=== PATIENT | female | born 1975 | race Caucasian/White ===

== ENCOUNTER 2022-08-31 20:57 | Emergency (ER) | payer BC ==
[~2022-08-31] VITALS: Ht 147.3 cm; Wt 59.4 kg
[2022-08-31 21:04] VITALS: BP_SYST 130
--- NOTE | 2022-08-31 21:05 | NUR ---
Patient triaged and placed in waiting room. VSS and patient appears in no acute distress at this time. Accompanied by , awaiting available bed, and MD notified of need for MSE.
[2022-08-31 21:36] LABS: BASOPHILS # (AUTO) 0.1 K/uL (0.0-0.2); BASOPHILS % (AUTO) 0.7 % (0.0-2.0); EOSINOPHILS # (AUTO) 0.2 K/uL (0.0-0.4); EOSINOPHILS % (AUTO) 1.4 % (0.0-4.0); HEMATOCRIT 45.4 % (36-48); HEMOGLOBIN 15.2 g/dL (12.0-16.0); LYMPHOCYTES % (AUTO) 16.2 % (20.5-51.5); MEAN CORPUSCULAR HEMOGLOBIN 30 pg (27-31); MEAN CORPUSCULAR HGB CONC 34 % (32-36); MEAN CORPUSCULAR VOLUME 88 fL (79.0-98.0); MONOCYTES % (AUTO) 8.5 % (1.7-9.3); NEUTROPHILS # (AUTO) 8.8 K/uL (1.8-7.7); NEUTROPHILS % (AUTO) 73.2 % (40.0-70.0); PLATELET COUNT (AUTO) 302 K/uL (130-430); RED BLOOD CELL COUNT(AUTO) 5.14 MIL/uL (4.2-6.2); RED CELL DISTRIBUTION WIDTH 13.1 % (9.0-15.0); WHITE BLOOD COUNT (AUTO) 12.1 K/uL (4.8-10.8)
--- NOTE | 2022-08-31 21:49 | NUR ---
Patient to ER bed 08 to gown for evaluation. Side rails up. Report given to SHANNAN FERNÁNDEZ.
--- NOTE | 2022-08-31 21:59 | NUR ---
Urine specimen collected and dropped off at the lab.
[2022-08-31 22:00] LABS: ALBUMIN 3.7 g/dL (3.4-4.8); CALCIUM 9.3 mg/dL (8.4-11.0); CREATININE 0.6 mg/dL (0.55-1.30)
--- NOTE | 2022-08-31 22:04 | NUR ---
Dr. Santamaria at bedside examining the patient.
[2022-08-31] MEDS ORDERED: KETOROLAC TROMETHAMINE 60 MG/2 ML VIAL IM ONE (22:15)
[2022-08-31 22:18] LABS: TOTAL BILIRUBIN 0.5 mg/dL (0.0-1.0)
[2022-08-31 22:22] LABS: BILIRUBIN,URINE NEGATIVE (NEGATIVE); CLARITY/URINE CLEAR (CLEAR); COLOR,URINE YELLOW (YELLOW); GLUCOSE,URINE NEGATIVE (NEGATIVE); KETONES,URINE NEGATIVE (NEGATIVE); NITRITE, URINE NEGATIVE (NEGATIVE); PROTEIN URINE NEGATIVE (NEGATIVE); UROBILINOGEN,URINE 0.2 (0.2-1.0)
[2022-08-31 22:30] LABS: BLOOD, URINE TRACE (NEGATIVE)
[2022-08-31 22:31] LABS: BACTERIA,URINE FEW /HPF (None Seen); LEUKOCYTE ESTERASE ,URINE TRACE (NEGATIVE); MUCUS,URINE None Seen /LPF (None Seen); RBC,URINE 0-3 /HPF (0-3)
[2022-08-31] MEDS ORDERED: TRAM50TA2 PO (23:03)
[2022-08-31 23:11] VITALS: BP_SYST 122
--- NOTE | 2022-08-31 23:13 | NUR ---
Patient is alert and oriented x4, respirations even and unlabored, speaking in full sentences, and ambulating with a steady gait. Denied any acute distress at this time. Okay for discharge per Dr. Santamaria. Printed discharge instructions and prescription given to the patient. ED and 911 precautions given. Patient verbalized understanding.
== END 2022-08-31 23:11 | disposition home or self-care (01) ==
LOC: SED 20:57
DX: K80.50 Calculus of bile duct without cholangitis or cholecystitis without obstruction (principal); R10.13 Epigastric pain; R11.0 Nausea; Z79.899 Other long term (current) drug therapy
CPT/HCPCS: 99285; 76705; 80053; 81000; 83690; 85025; 36415; 96372; J1885

== ENCOUNTER 2022-12-31 06:27 | Day surgery (SDC) | payer BC ==
[~2022-12-31] VITALS: Ht 147.3 cm; Wt 58.1 kg
[~2022-12-31 06:27] MED LIST: TRAM50TA2 PO
[2022-12-31 06:59] LABS: HCG,QUAL RESULT NEGATIVE (NEGATIVE)
[2022-12-31] MEDS ORDERED: CEFAZOLIN SOD 2 GM in D5W 50 ML IV ONE (07:00)
[2022-12-31] MEDS ORDERED: PROPOFOL 200MG/ 20ML VIAL (DIPRIVAN) IV ONE (07:20)
[2022-12-31] MEDS ORDERED: MIDAZOLAM HCL 5 MG/5 ML VIAL ONE (07:20)
[2022-12-31] MEDS ORDERED: NS 1000 ML IV.SOLN IV ONE (07:20)
[2022-12-31] MEDS ORDERED: KETOROLAC TROMETHAMINE 30 MG VIAL ONE (07:20)
[2022-12-31] MEDS ORDERED: NEOSTIGMINE METHYLSULFATE 1 MG/ML, 10 ML VIAL ONE (07:20)
[2022-12-31] MEDS ORDERED: fentaNYL CITRATE 250 MCG/5 ML AMP ONE (07:20)
[2022-12-31] MEDS ORDERED: NS IRRIG SOLN 1000 ML IR ONE (07:20)
[2022-12-31] MEDS ORDERED: ROCURONIUM BROMIDE 10 MG/ML (ZEMURON) ONE (07:20)
[2022-12-31] MEDS ORDERED: ISOFLURANE 15 MIN GAS INH ONE (07:20)
[2022-12-31] MEDS ORDERED: LIDOCAINE 2%, 20 ML MDV ONE (07:20)
[2022-12-31] MEDS ORDERED: DEXAMETHASONE SOD PHOSPHATE 4 MG/ML VIAL ONE (07:20)
[2022-12-31] MEDS ORDERED: CEFAZOLIN 1 GM IVPB PREMIX 50 ML IV ONE (07:20)
[2022-12-31] MEDS ORDERED: ONDANSETRON HCL 4 MG/2 ML VIAL ONE (07:20)
[2022-12-31] MEDS ORDERED: GLYCOPYRROLATE 0.2 MG/ML VIAL ONE (07:20)
[2022-12-31] MEDS ORDERED: BUPIVACAINE /PF 0.25% 30 ML VIAL INJ ONE (07:20)
[2022-12-31] MEDS ORDERED: LABETALOL 100 MG/ 20ML VIAL IVP PRN (08:15)
[2022-12-31] MEDS ORDERED: MEPERIDINE HCL/PF 25 MG/ML DISP.SYRIN IVP PRN (08:15)
[2022-12-31] MEDS ORDERED: LR 1,000 ML IV SCH (08:15)
[2022-12-31] MEDS ORDERED: hydrALAZINE HCL 20 MG/ML VIAL IVP PRN (08:15)
[2022-12-31] MEDS ORDERED: HYDROmorphone 1 MG/ML INJ. CARTRIDGE IVP PRN ×2 (08:15)
[2022-12-31] MEDS ORDERED: METOCLOPRAMIDE HCL 10 MG/2 ML VIAL IVP PRN (08:15)
[2022-12-31] MEDS ORDERED: ACETAMINOPHEN I.V. 1000 MG 100 ML IV ONE (08:24)
[2022-12-31] MEDS ORDERED: HYDROcodone/ACETAMIN 5-325 MG TAB (NORCO/ VICODIN) PO PRN ×2 (09:15)
[2022-12-31] MEDS ORDERED: D5/0.45 NS 1,000 ML IV SCH (09:15)
[2022-12-31] MEDS ORDERED: HYDROmorphone 1 MG/ML INJ. CARTRIDGE ONE (10:20)
[2022-12-31 10:35] VITALS: BP_SYST 110
[2022-12-31] MEDS ORDERED: HYDROcodone/ACETAMIN 5-325 MG TAB (NORCO/ VICODIN) ONE (12:24)
== END 2022-12-31 13:10 | disposition home or self-care (01) ==
LOC: SMU 06:27 → SDS 06:27
PROVIDERS: ATTEND Colon & Rectal Surgery
DX: K80.10 Calculus of gallbladder with chronic cholecystitis without obstruction (principal); I10 Essential (primary) hypertension; G43.909 Migraine, unspecified, not intractable, without status migrainosus; Z86.73 Personal history of transient ischemic attack (TIA), and cerebral infarction without residual deficits
CPT/HCPCS: 87081; 47563; 84703; 74300; 88304; J3490 ×2; J0690 ×2; J1100; J1885; J2001; J2250; J2405; J2704; J3010; J1170; Q9967; J7060; J7030; C1758; C1727; J0131; J2710; 76000; J7120